=== PATIENT | male | born 1945 | race Caucasian/White ===

== ENCOUNTER 2019-07-06 14:40 | Observation (INO) | payer MEDICARE, OTHER ==
[2019-07-06] MEDS ORDERED: SODIUM CHLORIDE 0.9% (FLUSH) 10 ML SYG IV PRN ×2 (14:44→20:17)
[2019-07-06] MEDS ORDERED: ASPIRIN (CHEWABLE) 81 MG TAB PO ONE (14:44)
--- NOTE | 2019-07-06 14:45 | ED.PDOC ---
History of Present Illness - General Time Seen by Provider: 07/06/19 14:44 Source: patient - History of Present Illness Initial Comments: 73 yo male with PMH of HTN, HLD who presents with cc of chest pain. 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 Located to right chest wall, no radiation, at worst 7/10, here down to 2-3/10, slightly worse with exertion/activity, slightly short of breath (hard to take a deep breath), nothing tried for relief. No cardiac hx reported. He called his daughter who's a nurse who told him to come to the ED. Denies any fevers, chills. Reports occasional cough. Has been hunting for the past 2-3 days and drinking some wine. Denies any smoking. Unsure what meds he takes but takes HTN & HLD meds. Allergies/Adverse Reactions: Allergies Shellfish Allergy Allergy (Severe, Verified 07/06/19 15:21) Home Medications: Ambulatory Orders Losartan Potassium 50 mg PO DAILY 07/06/19 Metoprolol Tartrate 25 mg PO DAILY 07/06/19 Pravastatin Sodium 10 mg PO DAILY 07/06/19 Review of Systems - Review of Systems Review of Systems: 07/06/19 16:27 as per HPI All other Systems: Reviewed and Negative Family Medical History - Family History Mother Family History: Unknown Living Status: Unknown Physical Exam - Physical Exam General Appearance: Alert, Comfortable, No apparent distress Eye Exam: bilateral normal Ears, Nose, Throat: hearing grossly normal, normal ENT inspection, normal pharynx Neck: non-tender, full range of motion, supple, normal inspection Respiratory: chest non-tender, lungs clear, normal breath sounds, no respiratory distress, no accessory muscle use, respiratory distress Cardiovascular/Chest: normal peripheral pulses, regular rate, rhythm, no edema, no gallop, no murmur Peripheral Pulses: radial,right: 2+, radial,left: 2+ Gastrointestinal/Abdominal: non tender, soft, no organomegaly Back Exam: normal inspection, no CVA tenderness, no vertebral tenderness Extremity: normal range of motion, non-tender, normal inspection, no pedal edema, no calf tenderness 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 EKG shows only nonspecific changes in inferior and lateral leads. Pt has been chest pain free for 1.5 hours in ED with only ASA 324 mg PO. CXR no acute processes per my read. Remainder of work-up unremarkable. -Discussed findings with pt. Suspect likely MSK vs GERD vs other non-cardiac etiology. However, given HEART score of 5, recommend further observation for chest pain. Pt agrees. Pt accepted by Darron Cooney for admit. Andreas Shirley MD Billing #[id number] - Results/Orders Results/Orders: 07/06/19 14:44 IV Care:Saline Lock per Protoc QSHIFT Telemetry ONCE Sodium Chloride 0.9% (Flush) [Saline Flush Syringe] 3 ml IV PRN PRN 07/06/19 14:45 EKG STAT 07/06/19 15:11 Arterial Blood Gas Stat 07/06/19 16:30 EKG STAT 07/06/19 17:51 ED Intent to Admit Routine 07/07/19 09:00 Pulse Ox Daily Laboratory Results - last 24 hr 07/06/19 07/06/19 07/06/19 14:55 14:55 14:55 WBC 8.9 RBC 5.14 Hgb 16.2 Hct 48.7 MCV 94.8 H MCH 31.6 H MCHC 33.3 RDW 13.9 Plt Count 325 MPV 7.3 L Absolute Neuts (auto) 5.10 Absolute Lymphs (auto) 2.50 Absolute Monos (auto) 1.20 H Absolute Eos (auto) 0.10 Absolute Basos (auto) 0.00 Neutrophils % 57.4 Lymphocytes % 28.1 Monocytes % 13.2 H Eosinophils % 0.8 L Basophils % 0.5 Sodium 141 Potassium 4.0 Chloride 104 Carbon Dioxide 26 Anion Gap 15.0 BUN 26 H Creatinine 0.75 BUN/Creatinine Ratio 34.7 H Random Glucose 96 Serum Osmolality 285.9 Calcium 9.7 Troponin I < 0.02 B-Natriuretic Peptide 07/06/19 07/06/19 14:55 16:35 WBC RBC Hgb Hct MCV MCH MCHC RDW Plt Count MPV Absolute Neuts (auto) Absolute Lymphs (auto) Absolute Monos (auto) Absolute Eos (auto) Absolute Basos (auto) Neutrophils % Lymphocytes % Monocytes % Eosinophils % Basophils % Sodium Potassium Chloride Carbon Dioxide Anion Gap BUN Creatinine BUN/Creatinine Ratio Random Glucose Serum Osmolality Calcium Troponin I < 0.02 B-Natriuretic Peptide 21.9 - EKG/XRAY/CT EKG: Sinus - NSR, HR 80, no ST elevations or q waves, nonspecific T wave inversions in inferior and lateral leads, axis normal, intervals normal, no prior EKG for comparison Departure - Departure Clinical Impression: Chest pain Time of Disposition: 17:51 Disposition: Admit Patient Condition: Fair Home Medications: Ambulatory Orders Losartan Potassium 50 mg PO DAILY 07/06/19 Metoprolol Tartrate 25 mg PO DAILY 07/06/19 Pravastatin Sodium 10 mg PO DAILY 07/06/19 Decision To Admit - Decistion To Admit Decision to Admit Reason: Admit from ER Decision to Admit Date: 07/06/19 Decision to Admit Time: 17:51
--- NOTE | 2019-07-06 15:15 | RAD ---
EXAM DESCRIPTION: Chest,1 View CLINICAL HISTORY: chest pain COMPARISON: None Available. TECHNIQUE: One-view radiograph of the chest FINDINGS: Cardiac silhouette shows upper limits of normal heart size. Pulmonary vascularity is within normal limits. Subtle linear opacities in the bilateral lower lung zones, most likely represent atelectasis. Underlying infiltrate cannot be entirely excluded, although felt less likely. No significant pleural effusion. No pneumothorax. Callous formation of multiple right-sided ribs, compatible with healing/healed right-sided rib fractures. IMPRESSION: 1. Subtle linear opacities in the bilateral lower lung zones, most likely represent atelectasis. Underlying infiltrate cannot be entirely excluded, although felt less likely. 2. Callous formation multiple right ribs, compatible with healing/healed right-sided rib fractures. 3. Upper limits of normal heart size without congestive heart failure. Electronically signed by: David Guthrie MD 07/06/2019 3:13 PM [facility]
--- NOTE | 2019-07-06 18:24 | HP ---
SUPERVISING PHYSICIAN: Luis Angel Garvin M.D. CHIEF COMPLAINT: Chest pain. HISTORY OF PRESENT ILLNESS: This is a 73 year-old male patient without a history of coronary artery disease who came into the Emergency Room with a complaint of chest pain. He has been on his hunting property since Saturday and states that he had some intermittent chest pressure/pain to the right side of his chest. At the worst it has been 7/10, currently about 2 to 3. He states that it does get a little bit worse with exertion but he has not really had any shortness of breath or diaphoresis. There is no radiation of the pain. He does have a history of reflux as well. He told his sister and she is a nurse and referred him to the Emergency Room. In the Emergency Room, he was evaluated and chest x-ray did not show any acute findings. EKG showed normal sinus rhythm with no ST elevation or Q wave, however there is some nonspecific T wave inversion in the inferior and lateral leads. Troponins times 2 were negative. His pain went away in the Emergency Room without any morphine or Nitroglycerin. The only thing he received was aspirin. Therefore he was referred for observation for chest pain rule out. At time of examination, the patient is alert and oriented. He does not have any complaints of pain at this time. There is no shortness of breath. PAST MEDICAL HISTORY: 1. Hypertension. 2. Hyperlipidemia. 3. Gastroesophageal reflux disease. PAST SURGICAL HISTORY: 1. Exploratory laparotomy. 2. Splenectomy. CURRENT MEDICATIONS: 1. Pravastatin 10 mg p.o. daily. 2. Metoprolol 25 mg p.o. daily. 3. Losartan 50 mg p.o. daily. ALLERGIES: SHELLFISH. FAMILY HISTORY: Father of emphysema. Mother of metastatic cancer. SOCIAL HISTORY: The patient is a nonsmoker. She smoked for 3 years from the ages of 20 through 23. He does occasionally drink alcohol and states that he did drink a little bit more than he normally does throughout the holidays but not to excess. No illegal drugs. REVIEW OF SYSTEMS: CONSTITUTIONAL: No fever or chills. No recent weight loss or weight gain. HEENT: No headaches, vision changes, ear pain, nasal congestion or throat pain. CARDIOVASCULAR: Positive for chest pain. No palpitations. No peripheral edema. RESPIRATORY: No cough, hemoptysis or pleuritic chest pain. GASTROINTESTINAL: No nausea, vomiting, diarrhea, constipation or abdominal pain. GENITOURINARY: No dysuria, frequency or flank pain. HEMATOLOGIC: No easy bruising and no transfusion reaction. ENDOCRINE: No polydipsia, polyuria or polyphagia. No heat or cold intolerance. NEUROLOGIC: No syncope, paresthesias or seizures. MUSCULOSKELETAL: No myalgias, arthralgias or muscle cramps. SKIN: No rashes, lesions or wounds. PHYSICAL EXAMINATION: VITAL SIGNS: Blood pressure 163/96, heart rate 84, respiratory rate 18, temperature 98.1, oxygen saturation 98%. GENERAL: Mr. Miguel is a 73 year-old male patient in no active distress currently. NEUROLOGIC: The patient is alert and oriented. LUNGS: Clear to auscultation bilaterally. CARDIOVASCULAR: Regular rate and rhythm. Normal S1, S2. ABDOMEN: Soft. Positive bowel sounds. GENITOURINARY: Deferred. EXTREMITIES: Lower extremities with no significant edema. LABORATORY: Labs and films as discussed in the History of Present Illness. ASSESSMENT: 1. Chest pain, rule out acute coronary syndrome. 2. Hypertension. 3. Hyperlipidemia. 4. History of gastroesophageal reflux disease. PLAN: The patient will be admitted for chest pain rule out with serial cardiac enzymes times 2 six hours apart. He has already had 2 sets close together in the Emergency Room which were negative. If cardiac enzymes remain negative and the patient is asymptomatic, he will be released tomorrow. Will check his lipid panel as well. ADDENDUM: All enzymes negative. EKGs are unchanged. Will discharge home, with instruction to follow up with PCP and will need stress test. #[id number] [facility] [place]
[2019-07-06] MEDS ORDERED: ACETAMINOPHEN 325 MG TAB PO PRN (20:17)
[2019-07-06] MEDS ORDERED: NITROGLYCERIN 0.4 MG 25 EA TAB SL PRN (20:17)
[2019-07-06] MEDS ORDERED: MORPHINE SULFATE INJ 10 MG/ML VIAL IV PRN (20:17)
[2019-07-06] MEDS ORDERED: NON-FORMULARY MEDICATION 1 EA MIS (Pravastatin Sodium [Pravastatin Sodium] 10 MG) PO SCH (20:30)
[2019-07-06] MEDS ORDERED: NON-FORMULARY MEDICATION 1 EA MIS (Losartan Potassium [Losartan Potassium] 50 MG) PO SCH (20:30)
[2019-07-06] MEDS ORDERED: METOPROLOL TARTRATE 25 MG TAB PO SCH (20:30)
[2019-07-06] MEDS ORDERED: IV SET AND CAP CHANGE INJ INJ SCH (20:30)
[2019-07-06] MEDS ORDERED: SODIUM CHLORIDE 0.9% (FLUSH) 10 ML SYG IV SCH (21:00)
[2019-07-06] MEDS ORDERED: PRAVASTATIN SODIUM 20 MG TAB ONE (21:10)
[2019-07-06] MEDS ORDERED: LOSARTAN POTASSIUM 25 MG TAB ONE (21:10)
[2019-07-07 06:07] VITALS: BP 147/78; TEMP 98
[2019-07-07] MEDS ORDERED: ASPIRIN TABLET 325 MG TAB PO SCH (09:00)
[2019-07-07] MEDS ORDERED: LOSARTAN POTASSIUM 25 MG TAB PO SCH (09:00)
[2019-07-07 09:58] VITALS: O2SAT 92
[2019-07-07] MEDS ORDERED: PRAVASTATIN SODIUM 20 MG TAB PO SCH (21:00)
== END 2019-07-07 09:45 | disposition home or self-care (01) ==
LOC: ER 14:40 → MS 18:23
PROVIDERS: ADMIT Nurse Practitioner; ATTEND Nurse Practitioner
DX: R07.89 Other chest pain (principal); I10 Essential (primary) hypertension; E78.5 Hyperlipidemia, unspecified; K21.9 Gastro-esophageal reflux disease without esophagitis; R06.02 Shortness of breath; Z79.899 Other long term (current) drug therapy; Z87.891 Personal history of nicotine dependence; Z90.81 Acquired absence of spleen; Z91.013 Allergy to seafood; Z82.5 Family history of asthma and other chronic lower respiratory diseases; Z80.9 Family history of malignant neoplasm, unspecified
CPT/HCPCS: 80048; 82553 ×2; 80061; 36415 ×6; 85025; 82550 ×2; 84484 ×4; 83880; 71045; 94760; 99285; 93005 ×3; G0378